=== PATIENT | male | born 1940 | race Caucasian/White ===

== ENCOUNTER 2020-11-19 16:07 | Inpatient (IN) | payer OTHER ==
[~2020-11-19] VITALS: Ht 172.7 cm; Wt 59.4 kg
--- NOTE | ~2020-11-19 | HC ---
[facility] [place] [address] CONSULTATION Name: MILAGRO SKINNER Room #: 360-P [facility] IN .R.#: [id number] Admission: 11/19/20 Attend Phys: Bear Hernandez MD Discharge: Date of : 38 Report #: [id number] THIS REPORT FOR: cc: FAM - Family physician unknown FAM - Family physician unknown Trupti Tobin MD ~ DOC #: [id number] Trupti Tobin MD REASON FOR CONSULTATION: Elevated creatinine. REASON FOR PRESENTATION: Presented from another facility for an elevated creatinine. HISTORY OF PRESENT ILLNESS: An 80-year-old with past medical history of hypertension and prostate cancer. He presented to his primary care physicians on Tuesday for routine labs. He was called to report to the hospital after the lab results were back because of an elevated creatinine. Creatinine was found to be around 5.6 with some hyperkalemia due to the lack of the renal service in [facility], the patient was transferred to our facility. He denies any symptoms related to his elevated creatinine. However, he tells me that he is known to have prostate issues, he had known about his kidney problem for a long time and this kidney problem was attributed to prostate issues. He is not very clear on the details. He does not recall any of his kidney numbers in the past. He seems very circumferential when it comes to his healthcare issues. He was found to have significantly elevated blood pressure on arrival with a blood pressure of 203/93. I was consulted to manage his chronic kidney disease. PAST MEDICAL HISTORY: 1. Hypertension. 2. Chronic kidney disease. 3. Prostate cancer post-chemotherapy implants. 4. History of carpal tunnel surgery. 5. COPD. 6. Remote ____ tonsillar surgery. FAMILY HISTORY: No known kidney problems. ALLERGIES: None. MEDICATIONS: 1. Flomax. 2. Amlodipine. 3. Casodex. SOCIAL HISTORY: He denies drug or alcohol abuse, but he continues to smoke. [facility] [address] [place] [address] CONSULTATION Name: MILAGRO SKINNER Room #: 360-P [facility] IN [facility].#: [id number] Admission: 11/19/20 Attend Phys: Bear Hernandez MD Discharge: Date of : 38 Report #: [id number] REVIEW OF SYSTEMS: GENERAL: No fever or chills. CARDIOVASCULAR: No chest pain or palpitation. PULMONARY: No cough or hemoptysis. GASTROINTESTINAL: No nausea or vomiting. GENITOURINARY: No frequency, no urgency; however, he does have nocturia. MUSCULOSKELETAL: Occasional back pain. NEUROLOGIC: No headache, no dizziness, no seizure activity. SKIN: No rash or ulcerations. PHYSICAL EXAMINATION: VITAL SIGNS: Blood pressure is 177/89. He is afebrile, pulse rate is 75. HEAD AND NECK: No jugular venous distention, no bruit, no thyromegaly. CHEST: Clear to auscultation bilaterally. CARDIOVASCULAR: No rubs detected. ABDOMEN: Soft, nontender, no hepatosplenomegaly. EXTREMITIES: Lower extremities, no edema. LABORATORY DATA: Hemoglobin is 10.2. Potassium is 5.3, sodium is 141, BUN is 55, creatinine is 5.3. IMPRESSION: 1. Advanced chronic kidney disease. 2. Chronic hypertension. PLAN: 1. I would like to obtain the patient's previous medical records as we do not have any previous values for his creatinine. 2. Discontinue IV fluid. 3. Obtain diagnostic workup for his elevated creatinine. 4. Manage his blood pressure with calcium channel blockers. 5. Avoid nephrotoxins. 6. Tentative plan is this is chronic kidney disease, likely related to uncontrolled hypertension and previous history of prostate problems. There is no indication for dialysis. We will continue to follow the patient and see where his kidney numbers are going to settle. Trupti Tobin MD AIA/TARIK/CARLINEE [address] [address] CONSULTATION Name: MILAGRO SKINNER Jai Room #: 360-P [facility] IN .R.#: [id number] Admission: 11/19/20 Attend Phys: Bear Hernandez MD Discharge: Date of : 38 Report #: [id number] By: [id number] Trupti Tobin MD /nt
[2020-11-19] MEDS ORDERED: NORVASC10 MG PO (18:16)
[2020-11-19] MEDS ORDERED: FLOMAX0.4 MG PO (18:16)
[2020-11-19] MEDS ORDERED: CASODEX 50 MG T50 M1 PO (18:17)
[2020-11-19 18:30] VITALS: BP 203/93
--- NOTE | 2020-11-19 18:42 | NUR ---
PT TO THE UNIT VIA AMBULANCE FROM [facility]. ORIENTED TO ROOM AND BEDSPACE. SEEN BY DR Biggs. ADMISSION ASSESSMENT AND HISTORY CHARTED - MED RECOMCILIATION COMPLETED. NO CO'S AT THE PRESENT TIME. PATIENT SITTING UP IN BED EATING DINEER.
[2020-11-19 19:21] LABS: HEMATOCRIT 31.5 % (42.0-52.0); HEMOGLOBIN 10.5 gm/dL (14.0-18.0); MCH 29.9 pg (26.0-34.0); MCHC 33.5 g/dL (28.0-37.0); MCV 89.3 fL (80.0-100.0); RBC 3.53 mil/uL (4.50-6.00); RDW 16.9 % (10.5-14.5); WBC 8.8 thou/uL (4.0-11.0)
[2020-11-19 19:29] LABS: CALCIUM 8.1 mg/dL (8.5-10.1); CREATININE 5.6 mg/dL (0.7-1.3); POTASSIUM 5.4 mmol/L (3.5-5.1)
[2020-11-19 19:34] LABS: ALBUMIN 2.9 g/dL (3.4-5.0); TOTAL BILIRUBIN 0.3 mg/dL (0.2-1.0); TOTAL PROTEIN 6.1 g/dL (6.4-8.2)
[2020-11-19 19:35] LABS: PROTIME 10.9 Seconds (10.5-12.1)
[2020-11-19 19:52] LABS: FOLIC ACID 22.8 ng/mL (8.6-58.9)
[2020-11-19 20:30] VITALS: BP 198/98
[2020-11-19 21:26] LABS: URINE BILIRUBIN NEGATIVE (Negative); URINE BLOOD 1+ (Negative); URINE CLARITY CLEAR; URINE COLOR YELLOW; URINE GLUCOSE-RANDOM* 1+ (Negative); URINE KETONES NEGATIVE (Negative); URINE LEUKOCYTES NEGATIVE (Negative); URINE NITRITE NEGATIVE (Negative); URINE PROTEIN (DIPSTICK) 3+ (Negative); URINE SPECIFIC GRAVITY 1.025 (1.005-1.035); URINE UROBILINOGEN 0.2 E.U./dl (0.2-1.0)
[2020-11-19 21:41] LABS: BACTERIA None Seen /HPF (None Seen); CASTS None Seen /LPF (None Seen); SQUAMOUS None Seen /LPF (0-3); URINE RBC 1-2 Rare /HPF (NONE SEEN); URINE WBC 1-5 Rare /HPF (NONE SEEN)
[2020-11-19 21:42] LABS: CRYSTALS None Seen /LPF (None Seen)
[2020-11-20 03:43] VITALS: BP 177/89
[2020-11-20 05:15] LABS: HEMATOCRIT 30.9 % (42.0-52.0); HEMOGLOBIN 10.2 gm/dL (14.0-18.0); MCH 29.5 pg (26.0-34.0); MCHC 32.9 g/dL (28.0-37.0); MCV 89.4 fL (80.0-100.0); RBC 3.45 mil/uL (4.50-6.00); RDW 16.7 % (10.5-14.5); WBC 9.1 thou/uL (4.0-11.0)
[2020-11-20 05:25] LABS: CALCIUM 7.8 mg/dL (8.5-10.1); CREATININE 5.3 mg/dL (0.7-1.3)
[2020-11-20 05:48] LABS: POTASSIUM 5.3 mmol/L (3.5-5.1)
--- NOTE | 2020-11-20 08:00 | NUR ---
PT ARRIVED FROM FROM . PT IS VOIDING REGULAR WITH 500ML OUT OVERNIGHT. BLADDER SCAN AFTER URINATION SHOWED 95ML RESIDUAL. IVF GTT AT 75ML. WATCHING BP IT WAS ELEVATED. AT AM VITALS 10MG OF HYDRALAZINE GIVEN. NICOTINE PATCH ON RIGHT SHOULDER. NEW IV ACCESS ESTABLISHED ON LEFT FA. PT UP AD JUSTIN TO BATHROOM. MEDICAL RECORDS REQUEST SENT TO [facility] AND VIA [facility] IN [place] PER DR. DALTON.
[2020-11-20 08:25] VITALS: BP 171/83
[2020-11-20 11:48] VITALS: BP 143/74
--- NOTE | 2020-11-20 13:37 | NUR ---
INITIAL ASSESSMENT: Received consult. SW reviewed chart and spoke with nursing and attending physician. Pt was transferred to [facility] from [facility] due to renal failure. Pt is currently on 1L of O2. SW met with pt at bedside. Introduced role of SW. Pt is alert/orientated x 4. Pt reports he lives at home alone, near [place]. Pt's son lives in a separate house on his property. Pt's dtr lives nearby in [place]. Prior to admission, pt was independent with ADLs. No use of DME. 1 step to enter his home. No steps inside. No hx of HH or post-acute placement. Pt's PCP is Dr. Abdulaziz Amanda in [place]. Therapy ordered to evaluate pt for discharge needs. Plan is for pt to discharge home when medically stable. SW is following to assist as needed with discharge planning.
[2020-11-20 15:54] VITALS: BP 153/80
[2020-11-20 20:25] VITALS: BP 169/84
[2020-11-21 04:44] VITALS: BP 167/82
[2020-11-21 05:17] LABS: ALBUMIN 2.3 g/dL (3.4-5.0); CALCIUM 7.1 mg/dL (8.5-10.1); CREATININE 5.4 mg/dL (0.7-1.3); PHOSPHORUS 6.8 mg/dL (2.5-4.9); POTASSIUM 5.5 mmol/L (3.5-5.1)
--- NOTE | 2020-11-21 06:45 | NUR ---
VSS OVERNIGHT. BP DOWN TO RANGE. SBA TO BATHROOM. STILL WAITING ON MR FROM TWO OTHER HOSPITALS. CALL LIGHT WITHIN REACH.
[2020-11-21 07:18] VITALS: BP 170/85
[2020-11-21] MEDS ORDERED: SODIUM BICARBO650 M3 PO (08:35)
[2020-11-21] MEDS ORDERED: VELTASSA8.4 GM PO (08:48)
[2020-11-21 11:14] VITALS: BP 146/75; BP 170/85
--- NOTE | 2020-11-21 11:52 | NUR ---
DISCHARGE NOTE: SW reviewed chart and spoke with nursing and attending physician. Pt is medically stable to discharge home today. Pt's family to provide transportation home. No discharge needs identified at this time. SW is available to assist should needs arise.
--- NOTE | 2020-11-21 14:01 | NUR ---
assumed care of pt at 0700. pt aox4 no acute distress. up ad guillermo w/ steady gait. d/c pending transportation from family. wcm.
== END 2020-11-21 14:02 | disposition home or self-care (01) | DRG 682 ==
LOC: TBA 16:07 → 3W 17:32 → 2N 17:32 → 3W 22:29
PROVIDERS: Hospitalist; ADMIT Hospitalist; ATTEND Hospitalist
DX: I12.9 Hypertensive chronic kidney disease with stage 1 through stage 4 chronic kidney disease, or unspecified chronic kidney disease (principal); E43 Unspecified severe protein-calorie malnutrition; N17.9 Acute kidney failure, unspecified; J44.9 Chronic obstructive pulmonary disease, unspecified; F17.210 Nicotine dependence, cigarettes, uncomplicated; C61 Malignant neoplasm of prostate; N18.9 Chronic kidney disease, unspecified; R53.81 Other malaise; Z60.2 Problems related to living alone; Z71.6 Tobacco abuse counseling; Z79.899 Other long term (current) drug therapy
CPT/HCPCS: 10879